=== PATIENT | female | born 1955 | race Caucasian/White ===

== ENCOUNTER → 2016-05-30 | Outpatient (CLI) | payer MEDICARE | LOC: RAD 11:37 | PROVIDERS: ATTEND Family Medicine | DX: Z12.31 Encounter for screening mammogram for malignant neoplasm of breast (principal) ==

== ENCOUNTER → 2016-06-22 | Outpatient (REF) | payer MEDICARE ==
[2016-06-22 09:45] LABS: ALBUMIN 4.2 g/dL (3.4-5.0); TOTAL PROTEIN 6.7 g/dL (6.4-8.5)
== END ==
LOC: LAB 09:14
PROVIDERS: ATTEND Family Medicine
DX: E78.2 Mixed hyperlipidemia (principal)
CPT/HCPCS: 80061; 80076